=== PATIENT | female | born 1955 | race Caucasian/White ===

== ENCOUNTER → 2016-09-04 | Outpatient (CLI) | payer MEDICARE, OTHER ==
[2016-09-04 11:38] LABS: Non-African American GFR(MDRD) 58 (>60 ml/min/1.73 sqM)
--- NOTE | 2016-09-09 12:35 | MM ---
Reason for exam: screening (asymptomatic). Baseline mammogram. History: Patient is postmenopausal. Physical Findings: A clinical breast exam by your physician is recommended on an annual basis and results should be correlated with mammographic findings. MG 3D Screening Mammo W/Cad Bilateral CC and MLO view(s) were taken. There are scattered fibroglandular densities. There is a 5mm mass possibly fat containing in the right breast at the 12:30 o'clock location approximately 5cm from nipple. ASSESSMENT: Incomplete: need additional imaging evaluation, BI-RAD 0 RECOMMENDATION: Special view mammogram and ultrasound of the right breast. [facility] will attempt to contact patient to return for supplemental views and ultrasound.
== END ==
LOC: RADMAMWWP 10:42
PROVIDERS: ATTEND Family Medicine
DX: Z12.31 Encounter for screening mammogram for malignant neoplasm of breast (principal); R92.2 Inconclusive mammogram
CPT/HCPCS: 82565; 77063; G0202

== ENCOUNTER → 2016-09-04 | Outpatient (CLI) | payer MEDICARE, OTHER ==
--- NOTE | 2016-09-04 13:03 | MR ---
EXAMINATION TYPE: MR brain wo/w con DATE OF EXAM: 09/04/2016 12:38 PM COMPARISON: None. HISTORY: Dizziness TECHNIQUE: Multiplanar, multiecho imaging of the brain was obtained with and without intravenous adm inistration of 15 mL intravenous MultiHance. FINDINGS: Midline structures are unremarkable. There is a normal craniocervical junction. Echoplanar diffusion imaging fails to show any areas of restricted diffusion. There is mucoperiosteal thickening involving ethmoid sinuses. There is an air-fluid level in the righ t frontal sinus. There are normal vascular flow voids. The orbits are normal. There is no evidence of a CP angle mass lesion. There are approximately 16 I signal lesions on the FLAIR dataset in a periventricular and deep white matter location. Most of these are low-attenuation on the T1 data set. The largest is in the basal ga nglia on the left and measures 0.8 x 1.2 x 2.2 cm. The second largest is in the groves radiata on the right and measures 10.1 mm. Although these may represent areas of lacunar infarction. I cannot exclu de other forms of demyelination. There is no mass effect, midline shift or intracranial blood. Following intravenous administration of gadolinium, there is a 7 mm rounded focus of enhancement in t he right side of the bahman. This does not correspond to any of the aforementioned FLAIR lesions. No ot her areas of abnormal enhancement are seen. IMPRESSION: 1. 8MM FOCUS OF ENHANCEMENT IN THE RIGHT SIDE OF THE BAHMAN. THIS IS SUSPICIOUS FOR NEOPLASM. 2. MULTIPLE FOCAL AREAS OF ABNORMAL FLAIR SIGNAL MAY REPRESENT AREAS OF PREVIOUS LACUNAR INFARCTION. DEMYELINATING DISEASE IS NOT EXCLUDED.
== END | disposition home or self-care (01) ==
LOC: RADMRIMAIN 11:22
PROVIDERS: ATTEND Family Medicine
DX: R90.89 Other abnormal findings on diagnostic imaging of central nervous system (principal); R42 Dizziness and giddiness
CPT/HCPCS: 70553; A9577

== ENCOUNTER → 2016-09-24 | Outpatient (CLI) | payer MEDICARE, OTHER ==
--- NOTE | 2016-09-24 09:46 | MM ---
Reason for exam: additional evaluation requested from abnormal screening. Last mammogram was performed 1 month ago. History: Patient is postmenopausal. Physical Findings: Nurse did not find any significant physical abnormalities on exam. MG 3D Work Up W/Cad RT CC and MLO view(s) were taken of the right breast. Prior study comparison: September 04, 2016, bilateral MG 3d screening mammo w/cad. The breast tissue is heterogeneously dense. This may lower the sensitivity of mammography. 7mm nodular asymmetry, 12 o'clock becomes less defined on additional views. This may represent a cyst. These results were verbally communicated with the patient and result sheet given to the patient on 09/24/16. ASSESSMENT: Incomplete: need additional imaging evaluation, BI-RAD 0 RECOMMENDATION: Ultrasound of the right breast.
--- NOTE | 2016-09-24 09:47 | USB ---
Reason for exam: additional evaluation requested from abnormal screening. History: Patient is postmenopausal. US Breast Workup Limited RT Right breast ultrasound demonstrates a 6 x 3 x 5mm oval, cystic lesion at 12 o'clock, 2.8cm from nipple. This correlates well with the mammographic finding. These results were verbally communicated with the patient and result sheet given to the patient on 09/24/16. ASSESSMENT: Benign, BI-RAD 2 RECOMMENDATION: Return to routine screening mammogram schedule for both breasts.
== END | disposition home or self-care (01) ==
LOC: RADMAMWWP 08:32
PROVIDERS: ATTEND Family Medicine
DX: R92.8 Other abnormal and inconclusive findings on diagnostic imaging of breast (principal)
CPT/HCPCS: 76642; G0206; G0279

== ENCOUNTER → 2016-12-16 | Outpatient (CLI) | payer MEDICARE, OTHER ==
[2016-12-16 18:04] LABS: Non-African American GFR(MDRD) 51 (>60 ml/min/1.73 sqM)
--- NOTE | 2016-12-17 22:35 | MR ---
EXAMINATION TYPE: MR brain wo/w con DATE OF EXAM: 12/16/2016 COMPARISON: Prior MRI brain September 04, 2016. 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 TECHNIQUE: Multiplanar, multisequence images of the brain and brainstem is performed without and with IV contras t, utilizing 7.5 mL intravenous Gadavist . FINDINGS: Diffusion weighted images demonstrate no evidence of a recent infarct or other diffusion ab normality. There is persistent ventricular and sulcal prominence consistent with diffuse cerebral at rophy. And findings are most prominent over bilateral frontal lobes. There are scattered foci of T2 h yperintensity seen throughout the white matter bilaterally. No significant change in size or number o f lesions is identified. Reference lesion left basal ganglia extending into internal capsule and head of caudate nucleus is redemonstrated on FLAIR axial images 15 through 17 measuring 1.9 x 1.1 cm on a xial image 17 not significantly changed from prior in size and appearance. SWI imaging shows some cur vilinear blood product along the medial aspect. Midline structures demonstrate normal morphology. The craniocervical junction appears within normal limits. Post contrast images redemonstrates 6 x 6 x 6 mm enhancing focus right aspect of todd on axi al image 10 and sagittal image 86 not significantly changed from prior. This area is isointense on T2 and T1-weighted images, shows low signal on SWI though not as low as blood product or hemosiderin. N o new enhancing lesions are clearly seen. The dural venous sinuses appear patent. There is interval r esolution of air-fluid level right frontal sinus. There is persistent mild mucosal thickening anterio r ethmoid sinuses and inferior maxillary sinuses improved from prior. Patchy fluid signal bilateral m astoid air cells is also felt slightly improved from prior. Globes are intact bilaterally. IMPRESSION: 1. Stable 6 mm isointense but heterogeneously enhancing right pontine lesion uncertain etiology in wh ich intraparenchymal neoplasm cannot be excluded. 2. Moderate nonspecific white matter changes redemonstrated. No new or enhancing lesions are seen. No significant change from prior. 3. Stable background of mild diffuse cerebral atrophy with more prominent symmetric moderate frontal lobe atrophy redemonstrated. 4. Improving paranasal sinus disease as detailed above.
== END ==
LOC: RADMRIMAIN 17:12
PROVIDERS: ATTEND Neurological Surgery
DX: D43.2 Neoplasm of uncertain behavior of brain, unspecified (principal); D43.4 Neoplasm of uncertain behavior of spinal cord; R90.89 Other abnormal findings on diagnostic imaging of central nervous system; G31.9 Degenerative disease of nervous system, unspecified; Z01.812 Encounter for preprocedural laboratory examination
CPT/HCPCS: 82565; 70553; 36415; A9581

== ENCOUNTER → 2018-03-21 | Outpatient (CLI) | payer MEDICARE, OTHER ==
--- NOTE | 2018-03-21 13:12 | MR ---
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 TECHNIQUE: Multiplanar, multisequence images of the brain and brainstem is performed without and with IV contras t, utilizing 7.5 mL intravenous Gadavist . FINDINGS: Diffusion weighted images demonstrate no evidence of a recent infarct or other diffusion ab normality. There is ventricular and sulcal prominence consistent with mild diffuse cerebral atrophy i s prominent over bilateral frontal lobes redemonstrated. Scattered foci of T2 hyperintensity are rede monstrated throughout the white matter bilaterally, most prominent lesion is right paraventricular le ailyn measuring approximately 15 x 10 mm axial image 20 not significantly changed from prior. There is persistent old infarct left head of caudate nucleus extending into basal ganglia on axial images 17 t hrough 19. Midline structures demonstrate normal morphology. The craniocervical junction appears within normal limits. Post contrast images redemonstrate 5 x 5 x 6 mm enhancing focus lateral posterior aspect rig ht todd axial image 12 and sagittal image 84 not significant change in size or appearance from prior. Lesion noted isointense on T1 and T2-weighted images. No new enhancing lesions are present. The dura l venous sinuses appear patent. Mild mucosal thickening involving ethmoid sinuses bilaterally is rede monstrated. IMPRESSION: 1. Stable 6 mm isointense but heterogeneous enhancing lesion right aspect of todd uncertain in etiolo gy, vascular etiology needs to BE considered. 2. Mild to moderate nonspecific white matter changes redemonstrated. Suspect old left-sided infarct i nvolving left basal ganglia and head of caudate nucleus. Stable mild diffuse age-related cerebral atr ophy most prominent over bilateral frontal lobes.
== END | disposition home or self-care (01) ==
LOC: RADMRIMAIN 10:36
PROVIDERS: ATTEND Family Medicine
DX: D33.2 Benign neoplasm of brain, unspecified (principal); R90.89 Other abnormal findings on diagnostic imaging of central nervous system; G31.1 Senile degeneration of brain, not elsewhere classified
CPT/HCPCS: 82565; 70553; 36415; A9585

== ENCOUNTER 2018-03-24 11:14 | Inpatient (IN) | payer MEDICARE, OTHER ==
[2018-03-24] MEDS ORDERED: ASPIRIN 325 MG TAB PO STA (11:40)
[2018-03-24] MEDS ORDERED: LABETALOL SYRINGE 5 MG/ML IVP STA ×2 (12:14→13:21)
--- NOTE | 2018-03-24 12:18 | XR ---
EXAMINATION TYPE: XR chest 2V DATE OF EXAM: 03/24/2018 COMPARISON: 04/02/2013 HISTORY: Chest pain TECHNIQUE: Frontal and lateral views of the chest are obtained. FINDINGS: There is no focal air space opacity, pleural effusion, or pneumothorax seen. The cardiac silhouette size is within normal limits. The osseous structures are intact. Minimal degenerative ch anges of the thoracic spine are noted. IMPRESSION: No acute cardiopulmonary process.
[2018-03-24 12:22] LABS: Basophils % (A) 1 %; Eosinophils # (A) 0.2 k/uL (0-0.7); Eosinophils % (A) 4 %; HCT 38.8 % (34.0-46.0); HGB 12.9 gm/dL (11.4-16.0); Lymphocytes # (A) 1.4 k/uL (1.0-4.8); Lymphocytes % (A) 24 %; MCHC 33.3 g/dL (31.0-37.0); MCV 89.9 fL (80.0-100.0); Mean Platelet Volume 9.4; Monocytes # (A) 0.3 k/uL (0-1.0); Monocytes % (A) 4 %; Neutrophils # (A) 3.7 k/uL (1.3-7.7); Neutrophils % (A) 65 %; Platelet Count 165 k/uL (150-450); RBC 4.32 m/uL (3.80-5.40); RDW 14.5 % (11.5-15.5); WBC 5.6 k/uL (3.8-10.6)
[2018-03-24 12:32] LABS: Prothrombin Time 10.6 sec (9.0-12.0)
[2018-03-24 12:37] LABS: Albumin 4.4 g/dL (3.5-5.0); Calcium 9.9 mg/dL (8.4-10.2); Magnesium 1.4 mg/dL (1.6-2.3); Potassium 4.6 mmol/L (3.5-5.1); Total Bilirubin 0.7 mg/dL (0.2-1.3); Total Protein 7.3 g/dL (6.3-8.2)
[2018-03-24 12:47] LABS: Creatine Kinase 48 U/L (30-135)
[2018-03-24 13:01] LABS: Creatine Kinase MB 0.4 ng/mL (0.0-2.4); Troponin I <0.012 ng/mL (0.000-0.034)
[2018-03-24] MEDS ORDERED: LABETALOL 5 MG/ML VIAL MDV IVP STA (13:17)
[2018-03-24] MEDS ORDERED: HEPARIN SODIUM,PORCINE 5,000 UNIT/ML 1 ML VIAL IV PRN (13:29)
[2018-03-24] MEDS ORDERED: HEPARIN SODIUM,PORCINE 5,000 UNIT/ML 1 ML VIAL IV ONE (13:29)
[2018-03-24] MEDS ORDERED: HEPARIN SOD,PORK IN 0.45% NACL 25,000 UNIT in 0.45% NACL 1 250ML.BAG IV SCH (13:30)
--- NOTE | 2018-03-24 13:40 | ED ---
General Adult HPI - General Chief complaint: Recheck/Abnormal Lab/Rx Stated complaint: sent to er following stress test Time Seen by Provider: 03/24/18 11:31 Source: patient, RN notes reviewed Mode of arrival: ambulatory Limitations: no limitations - History of Present Illness Initial comments: 62-year-old female with a past medical history of CVA, diabetes, hypertension, hyperlipidemia presents to the emergency department for abnormal stress test. Patient states she was told to come over here but is unsure of why. Patient denies any chest pain or shortness of breath. Denies any dizziness or lightheadedness. No weakness. Patient denies any previous MIs. On review, Lexiscan stress test done this morning shows a fixed mild infarct in the mid segments of the anterior and septal left ventricular fontaine in the distribution of the left anterior descending coronary artery with moderate to severe infarct ischemia. Patient has no other complaints at this time including shortness of breath, chest pain, abdominal pain, nausea or vomiting, headache, or visual changes. - Related Data Home Medications Medication Instructions Recorded Confirmed Labetalol HCl [Trandate] 200 mg PO BID 09/02/14 03/24/18 Lisinopril 40 mg PO DAILY 09/02/14 03/24/18 Aspirin 81 mg PO DAILY 10/03/14 03/24/18 Insulin Glargine,Hum.rec.anlog 30 unit SQ BID 03/24/18 03/24/18 [Lantus Solostar] Previous Rx's Medication Instructions Recorded Omeprazole [PriLOSEC] 20 mg PO AC-BID #60 cap 09/03/14 Hydrochlorothiazide [Hydrodiuril] 25 mg PO DAILY #0 10/22/14 metFORMIN HCL [Glucophage] 1,000 mg PO BID-W/MEALS #60 tab 10/22/14 Allergies Allergy/AdvReac Type Severity Reaction Status Date / Time No Known Allergies Allergy Verified 03/24/18 11:35 Review of Systems ROS Statement: Those systems with pertinent positive or pertinent negative responses have been documented in the HPI. ROS Other: All systems not noted in ROS Statement are negative. Past Medical History Past Medical History: CVA/TIA, Diabetes Mellitus, GERD/Reflux, GI Bleed, Hyperlipidemia, Hypertension, Osteoarthritis (OA) Additional Past Medical History / Comment(s): TIA years ago History of Any Multi-Drug Resistant Organisms: None Reported Past Surgical History: Hysterectomy, Joint Replacement Additional Past Surgical History / Comment(s): Total Left knee 12/2013, partial colectomy, colonoscopy 2 weeks ago. Past Anesthesia/Blood Transfusion Reactions: No Reported Reaction Past Psychological History: No Psychological Hx Reported Smoking Status: Former smoker Past Alcohol Use History: None Reported Past Drug Use History: None Reported - Past Family History Father History Unknown: Yes Family Medical History: Coronary Artery Disease (CAD), Diabetes Mellitus ( Father at age of 69 from diabetes but is soft and he also has history of CAD.), Hyperlipidemia, Hypertension, Myocardial Infarction (CA) Sister(s) Family Medical History: Diabetes Mellitus (Patient has 3 sisters 2 of them with diabetes type 2) Mother Family Medical History: Coronary Artery Disease (CAD) (Mother at age 72 from CABG) Additional Family Medical History / Comment(s): HAD HEART SX PT NOT SURE WHAT WAS DONE AND THAT SHE HAD FLUID IN HER LUNGS. Brother(s) Family Medical History: Diabetes Mellitus (Patient had 4 brothers 2 of them with diabetes complications.) Daughter(s) Family Medical History: No Reported History (Patient has 2 daughters no major medical problems.) Son(s) Family Medical History: No Reported History (Patient has one son no major medical problems) General Exam Limitations: no limitations General appearance: alert, in no apparent distress Head exam: Present: atraumatic, normocephalic, normal inspection Eye exam: Present: normal appearance, PERRL, EOMI. Absent: scleral icterus, conjunctival injection, periorbital swelling ENT exam: Present: normal exam, mucous membranes moist Neck exam: Present: normal inspection, full ROM. Absent: tenderness, meningismus, lymphadenopathy Respiratory exam: Present: normal lung sounds bilaterally. Absent: respiratory distress, wheezes, rales, rhonchi, stridor Cardiovascular Exam: Present: regular rate, normal rhythm, normal heart sounds. Absent: systolic murmur, diastolic murmur, rubs, gallop, clicks Neurological exam: Present: alert, oriented X3, CN II-XII intact Psychiatric exam: Present: normal affect, normal mood Course Vital Signs 03/24/18 03/24/18 03/24/18 11:20 12:25 13:05 Temperature 97.8 F Pulse Rate 96 73 75 Respiratory 18 16 18 Rate Blood Pressure 195/116 199/104 188/99 O2 Sat by Pulse 97 96 100 Oximetry 03/24/18 03/24/18 03/24/18 13:27 14:04 14:52 Temperature Pulse Rate 69 64 73 Respiratory 18 18 18 Rate Blood Pressure 190/98 187/91 172/77 O2 Sat by Pulse 96 98 95 Oximetry Medical Decision Making - Medical Decision Making Lexiscan stress test done this morning shows a fixed mild infarct in the mid segments of the anterior and septal left ventricular fontaine in the distribution of the left anterior descending coronary artery with moderate to severe. In fact ischemia. Abnormal left ventricular ejection fraction of 30%. Patient denies previous history of CA.62-year-old female presents for abnormal stress test. Patient denies any symptoms whatsoever. EKG does show some depression in lead I and AV L which is new compared to her latest EKG from 2014. Patient given aspirin. CBC unremarkable. CMP shows mild transaminitis. Magnesium of 1.4. Patient replaced with 2 g of magnesium. Troponin is negative. Chest x- ray shows no acute process. Given that patient's stress test did show infarct without history of known CA patient was started on heparin as troponin may not yet be elevated. Patient will be admitted for cardiology consult and further management. - Lab Data Result diagrams: 03/24/18 12:00 03/24/18 12:00 Lab Results 03/24/18 03/24/18 03/24/18 Range/Units 12:00 12:00 12:00 WBC 5.6 (3.8-10.6) k/uL RBC 4.32 (3.80-5.40) m/uL Hgb 12.9 (11.4-16.0) gm/dL Hct 38.8 (34.0-46.0) % MCV 89.9 (80.0-100.0) fL MCH 30.0 (25.0-35.0) pg MCHC 33.3 (31.0-37.0) g/dL RDW 14.5 (11.5-15.5) % Plt Count 165 (150-450) k/uL Neutrophils % 65 % Lymphocytes % 24 % Monocytes % 4 % Eosinophils % 4 % Basophils % 1 % Neutrophils # 3.7 (1.3-7.7) k/uL Lymphocytes # 1.4 (1.0-4.8) k/uL Monocytes # 0.3 (0-1.0) k/uL Eosinophils # 0.2 (0-0.7) k/uL Basophils # 0.0 (0-0.2) k/uL PT (9.0-12.0) sec INR (<1.2) APTT (22.0-30.0) sec Sodium 140 (137-145) mmol/L Potassium 4.6 (3.5-5.1) mmol/L Chloride 105 (98-107) mmol/L Carbon Dioxide 24 (22-30) mmol/L Anion Gap 11 mmol/L BUN 23 H (7-17) mg/dL Creatinine 0.90 (0.52-1.04) mg/dL Est GFR (CKD-EPI)AfAm 80 (>60 ml/min/1.73 sqM) Est GFR (CKD-EPI)NonAf 69 (>60 ml/min/1.73 sqM) Glucose 154 H (74-99) mg/dL Calcium 9.9 (8.4-10.2) mg/dL Magnesium 1.4 L (1.6-2.3) mg/dL Total Bilirubin 0.7 (0.2-1.3) mg/dL AST 71 H (14-36) U/L ALT 90 H (9-52) U/L Alkaline Phosphatase 61 (38-126) U/L Total Creatine Kinase 48 (30-135) U/L CK-MB (CK-2) 0.4 (0.0-2.4) ng/mL CK-MB (CK-2) Rel Index 0.8 Troponin I <0.012 (0.000-0.034) ng/mL Total Protein 7.3 (6.3-8.2) g/dL Albumin 4.4 (3.5-5.0) g/dL 03/24/18 Range/Units 12:00 WBC (3.8-10.6) k/uL RBC (3.80-5.40) m/uL Hgb (11.4-16.0) gm/dL Hct (34.0-46.0) % MCV (80.0-100.0) fL MCH (25.0-35.0) pg MCHC (31.0-37.0) g/dL RDW (11.5-15.5) % Plt Count (150-450) k/uL Neutrophils % % Lymphocytes % % Monocytes % % Eosinophils % % Basophils % % Neutrophils # (1.3-7.7) k/uL Lymphocytes # (1.0-4.8) k/uL Monocytes # (0-1.0) k/uL Eosinophils # (0-0.7) k/uL Basophils # (0-0.2) k/uL PT 10.6 (9.0-12.0) sec INR 1.0 (<1.2) APTT 25.0 (22.0-30.0) sec Sodium (137-145) mmol/L Potassium (3.5-5.1) mmol/L Chloride (98-107) mmol/L Carbon Dioxide (22-30) mmol/L Anion Gap mmol/L BUN (7-17) mg/dL Creatinine (0.52-1.04) mg/dL Est GFR (CKD-EPI)AfAm (>60 ml/min/1.73 sqM) Est GFR (CKD-EPI)NonAf (>60 ml/min/1.73 sqM) Glucose (74-99) mg/dL Calcium (8.4-10.2) mg/dL Magnesium (1.6-2.3) mg/dL Total Bilirubin (0.2-1.3) mg/dL AST (14-36) U/L ALT (9-52) U/L Alkaline Phosphatase (38-126) U/L Total Creatine Kinase (30-135) U/L CK-MB (CK-2) (0.0-2.4) ng/mL CK-MB (CK-2) Rel Index Troponin I (0.000-0.034) ng/mL Total Protein (6.3-8.2) g/dL Albumin (3.5-5.0) g/dL Disposition Clinical Impression: Abnormal stress test, Hypomagnesemia Disposition: ADMITTED IP TO THIS [facility] Condition: Fair Referrals: Doroteo Varela DO [Primary Care Provider] - 1-2 days Time of Disposition: 15:28
[2018-03-24] MEDS ORDERED: hydrALAZINE HCL 20 MG/ML 1 ML VIAL IVP STA (14:25)
[2018-03-24] MEDS: MAGNESIUM SULFATE-D5W PMX 1 GM in DEXTROSE/WATER 1 100ML.BAG IVPB SCH ×2 (14:47→16:21)
[2018-03-24] MEDS ORDERED: NITROGLYCERIN SL TABS 0.4 MG TAB SUBLINGUAL PRN (15:28)
[2018-03-24 20:03] LABS: Glucose,Whole Blood 193 mg/dL (75-99)
[2018-03-24] MEDS: INSULIN ASPART (NovoLOG) 100 UNIT/ML VIAL SQ SCH (20:07)
[2018-03-24 20:25] LABS: Creatine Kinase 42 U/L (30-135)
[2018-03-24] MEDS ORDERED: hydrALAZINE HCL 20 MG/ML 1 ML VIAL IVP PRN (20:34)
[2018-03-24] MEDS ORDERED: amLODIPine 10 MG TAB PO STA (20:34)
[2018-03-24 20:38] LABS: Creatine Kinase MB 0.5 ng/mL (0.0-2.4); Troponin I <0.012 ng/mL (0.000-0.034)
[2018-03-24] MEDS ORDERED: INSULIN DETEMIR (LEVEMIR) 100 UNIT/ML SYR SQ ONE (21:00)
[2018-03-25 00:50] LABS: Creatine Kinase 41 U/L (30-135)
[2018-03-25 01:03] LABS: Creatine Kinase MB 0.4 ng/mL (0.0-2.4); Troponin I <0.012 ng/mL (0.000-0.034)
[2018-03-25 05:46] LABS: Glucose,Whole Blood 201 mg/dL (75-99)
[2018-03-25] MEDS: INSULIN ASPART (NovoLOG) 100 UNIT/ML VIAL SQ SCH ×4 (06:19→20:22)
[2018-03-25 06:55] LABS: Basophils # (A) 0.1 k/uL (0-0.2); Basophils % (A) 1 %; Eosinophils # (A) 0.2 k/uL (0-0.7); Eosinophils % (A) 4 %; HCT 39.6 % (34.0-46.0); Lymphocytes # (A) 1.4 k/uL (1.0-4.8); Lymphocytes % (A) 28 %; MCH 29.4 pg (25.0-35.0); MCHC 32.9 g/dL (31.0-37.0); MCV 89.4 fL (80.0-100.0); Mean Platelet Volume 8.6; Monocytes # (A) 0.2 k/uL (0-1.0); Monocytes % (A) 5 %; Neutrophils # (A) 3.2 k/uL (1.3-7.7); Neutrophils % (A) 61 %; Platelet Count 195 k/uL (150-450); RBC 4.43 m/uL (3.80-5.40); RDW 14.6 % (11.5-15.5); WBC 5.2 k/uL (3.8-10.6)
[2018-03-25 07:05] LABS: Calcium 9.9 mg/dL (8.4-10.2); Magnesium 1.6 mg/dL (1.6-2.3)
[2018-03-25] MEDS ORDERED: ASPIRIN 325 MG TAB PO STA (08:32)
[2018-03-25] MEDS ORDERED: SODIUM CHLORIDE 0.9% 1,000 ML in EMPTY BAG 1 BAG IV ONE (08:32)
[2018-03-25] MEDS ORDERED: ATORVASTATIN 80 MG TAB PO STA (08:32)
[2018-03-25] MEDS ORDERED: ALPRAZolam 0.5 MG TAB PO PRN (08:32)
[2018-03-25] MEDS ORDERED: NITROGLYCERIN SL TABS 0.4 MG TAB SUBLINGUAL PRN ×2 (08:32→13:14)
[2018-03-25] MEDS ORDERED: ALPRAZolam 0.25 MG TAB PO PRN (08:32)
[2018-03-25] MEDS ORDERED: ASPIRIN 325 MG TAB PO SCH (09:00)
[2018-03-25] MEDS: LISINOPRIL 20 MG TAB PO SCH (09:55)
[2018-03-25] MEDS: HYDROCHLOROTHIAZIDE 25 MG TAB PO SCH (09:56)
[2018-03-25] MEDS: ATORVASTATIN 80 MG TAB PO SCH (09:57)
[2018-03-25] MEDS: hydrALAZINE HCL 25 MG TAB PO SCH ×2 (09:59→20:22)
[2018-03-25] MEDS: LABETALOL 200 MG TAB PO SCH ×2 (09:59→20:22)
[2018-03-25 11:20] LABS: Glucose,Whole Blood 161 mg/dL (75-99)
[2018-03-25] MEDS ORDERED: fentaNYL (PF) 50 MCG/ML 2 ML AMP ONE (11:20)
[2018-03-25] MEDS ORDERED: LIDOCAINE 1% INJ 10MG/ML (20 ML MDV) ONE (11:20)
[2018-03-25] MEDS ORDERED: VERAPAMIL 2.5 MG/ML 2 ML AMP ONE (11:24)
[2018-03-25] MEDS ORDERED: IV FLUID CONTINUATION 1,000 ML IV ONE (11:34)
[2018-03-25] MEDS ORDERED: BIVALIRUDIN 250 MG in SODIUM CHLORIDE 0.9% 50 ML IV ONE (11:45)
--- NOTE | 2018-03-25 11:48 | CONS ---
CONSULTATION Mrs. Briones is a 62-year-old female who was admitted through the emergency room. She is followed by and has a history of hypertension, hyperlipidemia, premature coronary artery disease. Yesterday, underwent a stress test and an echocardiogram as an outpatient and was called back to be admitted electively. Patient has no prior documented history of coronary artery disease. Her activity is limited by her knee discomfort, but she has no dyspnea. No chest pain. No dizziness or palpitation. No PND, orthopnea, or peripheral edema. Her echocardiogram revealed an ejection fraction of 35% to 40% and her stress test was reported showing evidence of anterior and septal wall defect with tony-infarct ischemia and an ejection fraction of 30%. Patient has no prior knowledge of a myocardial infarction. Her coronary risk factors are remarkable for hypertension, diabetes, and family history of premature coronary artery disease. She is a nonsmoker. MEDICATIONS: Include metformin 1 g twice a day, Prilosec, lisinopril 40 mg daily, labetalol 200 mg twice a day, insulin, hydrochlorothiazide 25 mg daily and aspirin once a day. REVIEW OF SYSTEMS: RESPIRATORY SYSTEM: No documented history of asthma, emphysema or bronchitis. GI SYSTEM: No recent GI bleeding. No peptic ulcer disease. SYSTEM: No dysuria or hematuria. NERVOUS SYSTEM: There is a questionable history of stroke 10 years ago, although not well documented. PHYSICAL EXAMINATION: A 62-year-old female, alert, oriented, in no apparent distress. Blood pressure running in the 160 and 150 with a heart rate in 70s. HEAD: Normocephalic. EYES: Sclerae nonicteric. NECK: Good upstroke, no bruit, no juglar venous distention. LUNGS: Clear to auscultation. HEART: Regular rate and rhythm, S1, S2. No S3. No rub or gallop appreciated. ABDOMEN: Soft, nontender. Positive bowel sounds. No organomegaly. Obese. EXTREMITIES: No edema, intact pulses. LAB DATA: Revealed BUN and creatinine 17 and 0.82, potassium 4.0. Troponin less than 0.012. Cholesterol 214, LDL of 141. The EKG revealed a sinus mechanism, normal axis and intervals with left ventricular hypertrophy and minor nonspecific ST-T wave changes. IMPRESSION: 1. Abnormal myocardial perfusion imaging with evidence of ischemic cardiomyopathy and inducible ischemia. 2. History of hypertension. 3. Diabetes mellitus. 4. Hyperlipidemia. RECOMMENDATION: I will add to her regimen statin. I have recommend proceeding with coronary angiography to assess her status and guide her treatment. The rationale behind the procedure as well as risks and complication were discussed with the patient who is in full understanding and agreement. Depending on the results of testing, further recommendation will be made. Thank you for this consult. Will follow with you. ANGELA / DAYSI: [id number] /
[2018-03-25] MEDS ORDERED: fentaNYL (PF) 50 MCG/ML 2 ML AMP IV ONE (12:20)
[2018-03-25] MEDS ORDERED: LIDOCAINE 1% (PF) 10 MG/ML (30 ML SDV) SQ ONE (12:22)
[2018-03-25] MEDS: VERAPAMIL SYRINGE (5 MG/10 ML) INTRAARTER ONE ×2 (12:23→12:32)
[2018-03-25] MEDS ORDERED: MIDAZOLAM 2 MG/2 ML VIAL IV ONE (12:23)
[2018-03-25] MEDS ORDERED: ONDANSETRON 4 MG/2 ML VIAL ONE (12:30)
[2018-03-25] MEDS ORDERED: ONDANSETRON 4 MG/2 ML VIAL IVP ONE (12:32)
[2018-03-25] MEDS ORDERED: PRASUGREL 10 MG TAB ONE (12:41)
[2018-03-25] MEDS ORDERED: BIVALIRUDIN BOLUS 250 MG/50 ML IV ONE (12:42)
[2018-03-25] MEDS ORDERED: PRASUGREL 10 MG TAB PO ONE (12:48)
[2018-03-25 12:49] LABS: Hemoglobin A1C 7.4 % (4.0-6.0)
[2018-03-25] MEDS ORDERED: IOPAMIDOL-370 125ML BTL INJ ONE (12:55)
[2018-03-25] MEDS ORDERED: IOPAMIDOL-370 100ML BTL INJ ONE (13:06)
[2018-03-25] MEDS ORDERED: RX INFO: IV CONTRAST WAS GIVEN 1 EACH MISC MISCELLANE PRN (13:14)
[2018-03-25] MEDS ORDERED: ATROPINE SULFATE 0.1 MG/ML 10ML SYRINGE IV PRN (13:14)
[2018-03-25] MEDS ORDERED: MAG HYDROX/AL HYDROX/SIMETH 30 ML CUP PO PRN (13:14)
[2018-03-25] MEDS ORDERED: ZOLPIDEM 5 MG TAB PO PRN (13:14)
[2018-03-25] MEDS ORDERED: SODIUM CHLORIDE 0.9% 1,000 ML IV SCH (13:15)
--- NOTE | 2018-03-25 14:01 | P.HPIM ---
History of Present Illness H&P Date: 03/25/18 This is a 62-year-old female one of Dr. Varela with a previous medical history significant for hypertension and hypertensive cardiovascular disease, diabetes mellitus type 2, mild TIA. Patient states that she had a stress test done 20 years ago and her doctor that she needed to have a repeat. She denies having any chest pain, shortness of breath, dyspnea with ambulation. She states her hip hurts when she walks. She underwent a stress test yesterday that was abnormal and showed a fixed mild infarct in the mid segments of the anterior and septal left ventricle fontaine in the distribution of the LAD with moderate to severe. Infarct ischemia. Abnormal left ventricle 8 EF was 30 %. Patient states that she was driving home and was called to come back in and was still slightly limited to these cardiac stepdown unit. Echocardiogram reveals EF of 35-40% with mild mitral regurgitation, trace tricuspid regurgitation, no pulmonary hypertension. She recently underwent an outpatient MRI due to left-sided weakness and hearing loss that found a stable 6 mm isointense but heterogeneous enhancing lesion right aspect of the todd uncertain etiology. Vascular etiology needs to be considered. Mild to moderate white matter changes redemonstrated. Suspect old left-sided infarct involving the left basal ganglia and head of the caudate nucleus. Stable mild diffuse age-related cerebral atrophy most prominent over the bilateral frontal lobes. Patient is scheduled for heart catheterization today with Dr. Cruz. Review of Systems All systems: negative Constitutional: Denies anorexia, Denies chills, Denies fatigue, Denies fever, Denies lethargy, Denies malaise, Denies poor appetite, Denies weakness Eyes: denies blurred vision, denies pain Ears, nose, mouth and throat: Denies dysphagia, Denies headache, Denies sore throat, Denies vertigo Cardiovascular: Denies chest pain, Denies decreased exercise tolerance, Denies dyspnea on exertion, Denies edema, Denies leg edema, Denies lightheadedness, Denies shortness of breath, Denies syncope Respiratory: Denies cough, Denies cough with sputum, Denies dyspnea, Denies excessive sputum, Denies hemoptysis, Denies home oxygen, Denies wheezing Gastrointestinal: Denies abdominal pain, Denies diarrhea, Denies loss of appetite, Denies melena, Denies nausea, Denies vomiting Genitourinary: Denies dysuria, Denies hematuria, Denies urgency, Denies urinary frequency Musculoskeletal: Denies frequent falls, Denies gait dysfunction, Denies muscle weakness, Denies myalgias Integumentary: Denies pruritus, Denies rash, Denies wounds Neurological: Denies aphasia, Denies change in mentation, Denies change in speech, Denies confusion, Denies gait dysfunction, Denies head injury, Denies headaches, Denies numbness, Denies seizures, Denies weakness Psychiatric: Denies anxiety, Denies depression Endocrine: Denies fatigue, Denies weight change Past Medical History Past Medical History: CVA/TIA, Diabetes Mellitus, GERD/Reflux, GI Bleed, Hyperlipidemia, Hypertension, Osteoarthritis (OA) Additional Past Medical History / Comment(s): TIA years ago History of Any Multi-Drug Resistant Organisms: None Reported Past Surgical History: Hysterectomy, Joint Replacement Additional Past Surgical History / Comment(s): Total Left knee 12/2013, partial colectomy, colonoscopy 2 weeks ago. Past Anesthesia/Blood Transfusion Reactions: No Reported Reaction Past Psychological History: No Psychological Hx Reported Smoking Status: Former smoker Past Alcohol Use History: None Reported Additional Past Alcohol Use History / Comment(s): Patient quit smoking 10 years ago. She denies any marijuana or illicit drug use, no alcohol use. Patient does not have oxygen, nebulizer, CPAP at home. Past Drug Use History: None Reported - Past Family History Father History Unknown: Yes Family Medical History: Coronary Artery Disease (CAD), Diabetes Mellitus, Hyperlipidemia, Hypertension, Myocardial Infarction ([place]) Additional Family Medical History / Comment(s): Father at age of 69 from [place] with history of diabetes. Sister(s) Family Medical History: Diabetes Mellitus Additional Family Medical History / Comment(s): Patient has 3 sisters 2 of them with diabetes type 2. One sister at age 47 from myocardial infarction. Mother Family Medical History: Coronary Artery Disease (CAD) Additional Family Medical History / Comment(s): Mother at age 72 from CABG complications. Brother(s) Family Medical History: Diabetes Mellitus Additional Family Medical History / Comment(s): Patient had 4 brothers. One brother at age 45 from myocardial infarction. Daughter(s) Family Medical History: No Reported History Additional Family Medical History / Comment(s): Patient has 2 daughters no major medical problems. Son(s) Family Medical History: No Reported History Additional Family Medical History / Comment(s): Patient has one son with no major medical problems. Medications and Allergies Home Medications Medication Instructions Recorded Confirmed Type Labetalol HCl [Trandate] 200 mg PO BID 09/02/14 03/24/18 History Lisinopril 40 mg PO DAILY 09/02/14 03/24/18 History Omeprazole [PriLOSEC] 20 mg PO AC-BID #60 cap 09/03/14 03/24/18 Rx Aspirin 81 mg PO DAILY 10/03/14 03/24/18 History Hydrochlorothiazide [Hydrodiuril] 25 mg PO DAILY #0 10/22/14 03/24/18 Rx metFORMIN HCL [Glucophage] 1,000 mg PO BID-W/MEALS #60 tab 10/22/14 03/24/18 Rx Insulin Glargine,Hum.rec.anlog 30 unit SQ BID 03/24/18 03/24/18 History [Lantus Solostar] Allergies Allergy/AdvReac Type Severity Reaction Status Date / Time No Known Allergies Allergy Verified 03/24/18 11:35 Physical Exam Vitals: Vital Signs Temp Pulse Pulse Resp BP BP Pulse Ox 03/25/18 03:21 97.5 F L 78 18 150/70 94 L 03/24/18 23:38 98.1 F 69 18 145/65 95 03/24/18 23:00 186/79 03/24/18 20:30 169/89 03/24/18 20:05 179/90 03/24/18 19:45 97.6 F 76 18 201/92 95 03/24/18 19:01 87 18 179/91 96 03/24/18 16:22 72 16 164/87 96 03/24/18 14:52 73 18 172/77 95 03/24/18 14:04 64 18 187/91 98 03/24/18 13:27 69 18 190/98 96 03/24/18 13:05 75 18 188/99 100 03/24/18 12:25 73 16 199/104 96 03/24/18 11:20 97.8 F 96 18 195/116 97 Intake and Output 03/24/18 03/25/18 03/25/18 22:59 06:59 14:59 Intake Total 248.801 240 Balance 248.801 240 Intake: IV 190 240 0.9 160 160 Heparin Sod,Pork in 0.45% 30 80 NaCl 25,000 unit In 0.45 % NaCl 1 250ml.bag @ 12 UNITS/KG/HR 9.14 mls/hr IV .Q24H [facility] Rx#: [id number] Intake, IV Titration 58.801 Amount Heparin Sod,Pork in 0.45% 58.801 NaCl 25,000 unit In 0.45 % NaCl 1 250ml.bag @ 12 UNITS/KG/HR 9.14 mls/hr IV .Q24H [facility] Rx#: [id number] Other: Weight 74.6 kg General appearance: average body habitus, no acute distress - EENT Eyes: Reports EOMI, Reports PERRLA, Reports normal apperance, Denies ptosis, Denies scleral icterus ENT: Reports NA/AT, Reports normal oropharynx, Denies pharyngeal erythema, Denies thrush Ears: bilateral: normal - Neck Neck: Reports normal ROM, Denies lymphadenopathy, Denies stridor, Denies thyromegaly Carotids: bilateral: upstroke normal, negative: upstroke delayed, upstroke diminished, upstroke bounding, bruit absent Thyroid: bilateral: normal size - Respiratory Respiratory: bilateral: CTA, negative: diminished, dullness, rales, rhonchi, wheezing, prolonged expiration - Cardiovascular Rhythm: regular Heart sounds: normal: S1, S2 Abnormal Heart Sounds: Denies systolic murmur, Denies diastolic murmur, Denies rub, Denies S3 Gallop, Denies S4 Gallop, Denies click - Gastrointestinal General gastrointestinal: Reports normal bowel sounds, Reports soft, Denies organomegaly, Denies splenomegaly, Denies tenderness, Denies umbilical hernia, Denies ventral hernia - Integumentary Integumentary: Reports normal, Denies rash, Denies ulcer - Musculoskeletal Musculoskeletal: Reports gait normal, Reports strength equal bilaterally - Psychiatric Psychiatric: Reports A&O x's 3, Reports appropriate affect, Reports intact judgment & insight Results CBC & Chem 7: 03/25/18 05:51 03/25/18 05:51 Labs: Abnormal Lab Results - Last 24 Hours (Table) 03/24/18 03/24/18 03/24/18 Range/Units 12:00 19:13 20:02 APTT 53.2 H (22.0-30.0) sec BUN 23 H (7-17) mg/dL Glucose 154 H (74-99) mg/dL POC Glucose (mg/dL) 193 H (75-99) mg/dL Magnesium 1.4 L (1.6-2.3) mg/dL AST 71 H (14-36) U/L ALT 90 H (9-52) U/L Triglycerides (<150) mg/dL Cholesterol (<200) mg/dL LDL Cholesterol, Calc (0-99) mg/dL HDL Cholesterol (40-60) mg/dL 03/25/18 03/25/18 03/25/18 Range/Units 05:45 05:51 05:51 APTT 36.5 H (22.0-30.0) sec BUN (7-17) mg/dL Glucose 160 H (74-99) mg/dL POC Glucose (mg/dL) 201 H (75-99) mg/dL Magnesium (1.6-2.3) mg/dL AST (14-36) U/L ALT (9-52) U/L Triglycerides 193 H (<150) mg/dL Cholesterol 214 H (<200) mg/dL LDL Cholesterol, Calc 141 H (0-99) mg/dL HDL Cholesterol 34 L (40-60) mg/dL Thrombosis Risk Factor Assmnt - DVT/VTE Prophylaxis DVT/VTE Prophylaxis: Pharmacologic Prophylaxis ordered - Choose All That Apply Any of the Below Risk Factors Present?: Yes Each Factor Represents 1 point: Obesity (BMI >25) Each Risk Factor Represents 2 Points: Age 61-74 years Thrombosis Risk Factor Assessment Total Risk Factor Score: 3 Thrombosis Risk Factor Assessment Level: Moderate Risk Assessment and Plan Plan: 1. Abnormal stress test showing ischemia and ischemic cardiomyopathy. Patient admitted to the cardiac stepdown unit, cardiology consult appreciated. Patient scheduled for heart catheterization today. Continue aspirin 81 mg daily, Lipitor 80 mg daily. 2. Diabetes mellitus type 2 uncontrolled with hyperglycemia, hemoglobin A1c 7.4. Metformin currently on hold for heart catheterization. Patient was given half dose of Lantus this morning and night will continue her home dose of 30 units twice daily 3. Hypertension and hypertensive cardiovascular disease. Continue lisinopril 40 mg orally once every day, labetalol 200 mg orally twice every day, hydralazine 25 mg twice daily, hydrochlorothiazide 25 mg daily. 4. Gastroesophageal reflux disease and GI prophylaxis. Continue Prilosec 20 mg twice daily. 5. Osteoarthritis currently Naprosyn 500 mg orally twice every day. 6. History of nonspecific colitis, stable. CODE STATUS: Full code Patient will be admitted to the hospital for a minimum of 2 night stay Discharge plan: Return home on Wednesday Impression and plan of care have been directed as dictated by the signing physician. Elisa Hough nurse practitioner acting as scribe for signing physician.
--- NOTE | 2018-03-25 14:09 | CC ---
CARDIAC CATHETERIZATION REPORT HISTORY: Mrs. Briones is a 62-year-old female with known history of hypertension and diabetes mellitus who presented after undergoing an outpatient myocardial perfusion imaging that revealed evidence of stress-induced ischemia involving the anterior wall with impairment of left ventricular systolic function. In view of that, recommendation made regarding cardiac catheterization. The procedures, risks and complications were discussed with the patient who is in full understanding and agreement. PROCEDURE: Patient was brought to rn cardiac cath in a fasting semi-sedated state after receiving fentanyl and Benadryl and achieving moderate conscious sedated state. Using Xylocaine anesthesia and Seldinger technique, a 6-Swiss sheath was introduced in the right radial artery. Selective right and left coronary angiography was performed using 5- Swiss 3 and half bend right and left Gary catheter. Multiple views of the coronary artery including hemiaxial views were obtained. Following that, angioplasty and stenting of the LAD was performed. Following that a 5-Swiss tight pigtail catheter was introduced in the left ventricle and left ventriculogram was performed. Following that, catheter and sheath were removed. Hemostasis was obtained with deployment of a TR band. There was no immediate complication. Patient was returned to his room in stable condition. Of note, the patient received intra-arterial verapamil. FINDINGS: FLUOROSCOPY: There was calcification involving the left anterior descending artery. CORONARY ANGIOGRAPHY: LEFT ANTERIOR DESCENDING CORONARY ARTERY: This is a large-sized vessel reaching toward the apex with a wraparound apex segment diffusely diseased throughout its course, proximally has an area of stenosis up to 80%. The rest of the vessel has diffuse intimal disease with area stenosis up to 40%. The rest of the vessel has no high-grade stenosis. The vessel gives rise to 2 diagonal branch that diffusely disease as well. LEFT CIRCUMFLEX: This is a dominant vessel, large in caliber, bifurcating distally into PDA and posterolateral segment and branches. The left circumflex in the proximal segment has an eccentric 50% plaque. It gives rise to an obtuse marginal branch that has a 40% to 50% plaque distally. The PLV and PDA have intimal disease without any evidence of high-grade stenosis. RIGHT CORONARY ARTERY: This is a small nondominant vessel, subtotally occluded with antegrade flow. LEFT VENTRICULOGRAM: Left ventriculogram was performed in 30 degree SINGH view and revealed anteroapical hypokinesis of mild degree. The ejection fraction is estimated at 45% to 50%. CONCLUSION: 1. Calcified left anterior descending artery. 2. Significant stenosis involving the proximal LAD in a long segment. 3. Moderate disease in the left circumflex with subtotal occluded small nondominant right coronary artery. 4. Mildly impaired left ventricular systolic function. RECOMMENDATION: In view of findings and anatomy, I have recommend proceeding with angioplasty and stenting of the LAD. The procedures as well as risks and complication were discussed with the patient who is in full understanding and agreement. MMODL / IJN: [id number] /
--- NOTE | 2018-03-25 14:45 | PTCA ---
PERCUTANEOUSTRANS CORORONARY ANGIOGRAPHY Mrs. Briones is a 62-year-old female with known history of hypertension, hyperlipidemia, who underwent an outpatient myocardial perfusion imaging that revealed inducible ischemia involving the anteroapical wall with impairment of left ventricular systolic function. She underwent cardiac catheterization, was found to have critical stenosis involving a long segment of the proximal LAD. In view of that, recommendation regarding angioplasty and stenting. The procedure as well as risks and complications were discussed with the patient who is in full understanding and agreement. DESCRIPTION OF THE PROCEDURE: A 6-Bolivian FR 3.5 guiding catheter was introduced into the system. After cannulating the left main, a 0.014 balanced medium weight J-wire was advanced across the lesion, positioned distally. Then a 2.25 x 8 mm Trek balloon was advanced and 2 inflations at 10 atmospheres were done. Following that, the balloon was removed and a 2.25 x 28 mm Xience Keturah stent was deployed, postdilated at 16 atmospheres. After the last inflation, after appropriate wait, the balloon and the guidewire were withdrawn back in the guiding catheter. Images were obtained, repeated. Those images reveal stable successful stenting. At that point, the guiding catheter, the balloon and the guidewire were removed. Left ventriculogram was performed. Following that, the sheath was removed. Hemostasis was obtained with deployment of a TR band. There was no immediate complication. Patient was returned to her room in stable condition. Of note, the patient received Angiomax per protocol as well as oral loading dose of Effient. She had EKG changes with the inflation without significant chest pain. RESULTS: Successful stenting in a long segment of the proximal LAD with reduction of stenosis from 80% to 0%. RECOMMENDATIONS: Patient will be continued on aspirin, Effient, beta david, JOHN inhibitor and statin. The importance of dual antiplatelet treatment were discussed with the patient and her family, who are in full understanding and agreement. Duration of procedure: 48 minutes. MMODL / IJN: [id number] /
--- NOTE | 2018-03-25 14:51 | LTR ---
DATE OF SERVICE: 03/25/[address] Varela: I had the pleasure of performing cardiac catheterization and coronary angioplasty and stenting on Mrs. Briones at [facility] on March 25 and a full copy of procedure note will be forwarded to you. In brief, she was found to have critical stenosis involving a long segment of the proximal LAD. Underwent successful stenting of that vessel using a drug-eluting stent. I am hopeful that this procedure was stabilize her status. Thank you again for allowing me to participate in her care. Please feel free to call for any questions. Sincerely, ANGELA / IJN: [id number] /
[2018-03-25 17:08] LABS: Glucose,Whole Blood 153 mg/dL (75-99)
[2018-03-25 20:14] LABS: Glucose,Whole Blood 182 mg/dL (75-99)
[2018-03-25] MEDS: INSULIN DETEMIR (LEVEMIR) 100 UNIT/ML SYR SQ SCH (20:22)
[2018-03-26 05:33] VITALS: RESP 18
[2018-03-26 05:58] LABS: Glucose,Whole Blood 158 mg/dL (75-99)
[2018-03-26 06:24] LABS: Basophils % (A) 1 %; Eosinophils # (A) 0.2 k/uL (0-0.7); Eosinophils % (A) 4 %; HCT 36.7 % (34.0-46.0); HGB 12.3 gm/dL (11.4-16.0); Lymphocytes # (A) 1.3 k/uL (1.0-4.8); Lymphocytes % (A) 23 %; MCH 30.1 pg (25.0-35.0); MCHC 33.4 g/dL (31.0-37.0); MCV 90.1 fL (80.0-100.0); Mean Platelet Volume 8.6; Monocytes # (A) 0.4 k/uL (0-1.0); Monocytes % (A) 7 %; Neutrophils # (A) 3.5 k/uL (1.3-7.7); Neutrophils % (A) 64 %; Platelet Count 184 k/uL (150-450); RBC 4.07 m/uL (3.80-5.40); RDW 14.6 % (11.5-15.5); WBC 5.5 k/uL (3.8-10.6)
[2018-03-26] MEDS: INSULIN ASPART (NovoLOG) 100 UNIT/ML VIAL SQ SCH ×2 (06:33→11:51)
[2018-03-26 06:45] LABS: Potassium 4.5 mmol/L (3.5-5.1)
[2018-03-26] MEDS ORDERED: PANTOPRAZOLE 40 MG TABLET PO SCH (07:30)
[2018-03-26] MEDS ORDERED: ASPIRIN 81 MG PO SCH (09:00)
[2018-03-26] MEDS: HYDROCHLOROTHIAZIDE 25 MG TAB PO SCH (09:08)
[2018-03-26] MEDS: LABETALOL 200 MG TAB PO SCH (09:08)
[2018-03-26] MEDS: hydrALAZINE HCL 25 MG TAB PO SCH (09:08)
[2018-03-26] MEDS: INSULIN DETEMIR (LEVEMIR) 100 UNIT/ML SYR SQ SCH (09:09)
[2018-03-26] MEDS: LISINOPRIL 20 MG TAB PO SCH (09:09)
[2018-03-26] MEDS: ATORVASTATIN 80 MG TAB PO SCH (09:09)
--- NOTE | 2018-03-26 11:06 | P.PN ---
Subjective Progress Note Date: 03/26/18 This is a 62-year-old female admitted to the hospital through the emergency room, has history of hypertension hyperlipidemia, PAD, underwent a stress test as an outpatient which was reported to be normal for this reason patient was taken to the cardiac catheterization lab by Dr. Cruz and underwent angioplasty and stenting of the LAD. She was seen and examined this morning, denies any chest pain or difficulty in breathing. EKG showed normal sinus rhythm with no changes from post-PCI. Blood pressure 132/70 with a heart rate in the 70s, 95% on room air. Sodium 140, potassium 4.5, BUN 19 and creatinine 1.0. White blood cell count 5.5, hemoglobin 12.3, platelet count 184. Objective - Vital Signs Vital signs: Vital Signs Temp 98.1 F 03/26/18 09:12 Pulse 76 03/26/18 09:12 Resp 18 03/26/18 09:12 BP 133/75 03/26/18 09:12 Pulse Ox 95 03/26/18 09:12 Intake & Output 03/25/18 03/26/18 03/26/18 18:59 06:59 18:59 Intake Total 010.347 6048 140 Balance 322.253 4695 140 Weight 74.6 kg 91.5 kg Intake: IV 126 Intake, IV Titration 118.211 500 Amount Heparin Sod,Pork in 0.45% 118.211 NaCl 25,000 unit In 0.45 % NaCl 1 250ml.bag @ 12 UNITS/KG/HR 9.14 mls/hr IV .Q24H [facility] Rx#: [id number] Sodium Chloride 0.9% 1, 500 000 ml @ 100 mls/hr IV . Q10H [facility] Rx#:[id number] Oral 1460 140 Other: # Voids 2 - Exam PHYSICAL EXAMINATION: GENERAL: 62-year-old female in no acute distress at the time of my examination HEENT: Head is atraumatic, normocephalic. Pupils equal, round. Sclera anicteric. Conjunctiva are clear. Mucous membranes of the mouth are moist. Neck is supple. There is no elevated jugular venous pressure.No carotid bruit is heard. HEART EXAMINATION: Heart S1, S2 normal. No murmur or gallop heard. CHEST EXAMINATION: Lungs are clear to auscultation and precussion. No chest wall tenderness is noted on palpation or with deep breathing. ABDOMEN: Soft, nontender. Bowel sounds are heard. No organomegaly noted. EXTREMITIES: 2+ peripheral pulses with no evidence of peripheral edema and no calf tenderness noted. Right radial site clean and dry, good distal pulse. NEUROLOGIC patient is awake, alert and oriented X3. . - Labs CBC & Chem 7: 03/26/18 05:41 03/26/18 05:26 Labs: Abnormal Lab Results - Last 24 Hours (Table) 03/25/18 03/25/18 03/25/18 Range/Units 05:51 11:19 17:07 BUN (7-17) mg/dL Creatinine (0.52-1.04) mg/dL Glucose (74-99) mg/dL POC Glucose (mg/dL) 161 H 153 H (75-99) mg/dL Hemoglobin A1c 7.4 H (4.0-6.0) % 03/25/18 03/26/18 03/26/18 Range/Units 20:13 05:26 05:57 BUN 19 H (7-17) mg/dL Creatinine 1.06 H (0.52-1.04) mg/dL Glucose 144 H (74-99) mg/dL POC Glucose (mg/dL) 182 H 158 H (75-99) mg/dL Hemoglobin A1c (4.0-6.0) % Assessment and Plan Plan: Assessment and plan #1 status post angioplasty with stent placement of the LAD #2 ischemic cardiomyopathy #3 hypertension #4 diabetes #5 hyperlipidemia Plan From cardiology's perspective, patient may be able to be discharged home today. We'll make her a follow-up appointment to see Dr. Cruz in the office one week post discharge. She will be discharged home on aspirin 81 mg daily, Lipitor 80 mg daily, hydralazine, labetalol 200 mg by mouth twice a day, lisinopril 40 mg daily, Effient 10 mg daily, and sublingual nitroglycerin as needed for chest pain. DNP note has been reviewed, I agree with a documented findings and plan of care. Patient was seen and examined.
[2018-03-26 11:09] LABS: Glucose,Whole Blood 138 mg/dL (75-99)
[2018-03-26] MEDS ORDERED: PRASUGREL 10 MG TAB PO SCH (12:00)
[2018-03-26 12:30] VITALS: BP 122/75; PULSE 71; TEMP 98.2
--- NOTE | 2018-03-26 12:30 | P.DS ---
Providers Date of admission: 03/24/18 14:33 Attending physician: Celeste Drake Consults: 03/24/18 15:31 Consult Physician Urgent Consulting Provider: Jim Moe Consult Reason/Comments: abnormal EKG, possible infarct Do you want consulting provider notified?: Yes 03/25/18 13:14 Consult Physician Routine Consulting Provider: [facility] Consult Reason/Comments: Post Interventional patient Do you want consulting provider notified?: Already Contacted Primary care physician: [facility] Course: This is 62 years old female who presented to the hospital with chest pain patient had abnormal stress test and was evaluated by cardiology who recommended cardiac catheterization which turned to be positive for 80% occlusion and LAD territory patient received stent and was started on Effient along with aspirin counseled regarding medication adherence and close follow-up with her primary care physician and consultant teacher on scheduled appointment. Patient was up ambulating in the ivy tolerating diet and felt stable from the medical standpoint and discharged by cardiology to follow-up with the office unscheduled appointment. Patient was discharged in stable condition Patient Condition at Discharge: Fair Plan - Discharge Summary Discharge Rx Participant: No New Discharge Prescriptions: New Atorvastatin [Lipitor] 80 mg PO DAILY #30 tab hydrALAZINE HCL [Apresoline] 25 mg PO BID #60 tab Nitroglycerin Sl Tabs [Nitrostat] 0.4 mg SUBLINGUAL Q5M PRN #25 tab PRN Reason: Chest Pain Prasugrel [Effient] 10 mg PO DAILY #30 tab Continue Lisinopril 40 mg PO DAILY Labetalol HCl [Trandate] 200 mg PO BID Aspirin 81 mg PO DAILY metFORMIN HCL [Glucophage] 1,000 mg PO BID-W/MEALS #60 tab No Action Omeprazole [PriLOSEC] 20 mg PO AC-BID #60 cap Hydrochlorothiazide [Hydrodiuril] 25 mg PO DAILY #0 Insulin Glargine,Hum.rec.anlog [Lantus Solostar] 30 unit SQ BID Discharge Medication List Labetalol HCl [Trandate] 200 mg PO BID 09/02/14 [History] Lisinopril 40 mg PO DAILY 09/02/14 [History] Omeprazole [PriLOSEC] 20 mg PO AC-BID #60 cap 09/03/14 [Rx] Aspirin 81 mg PO DAILY 10/03/14 [History] Hydrochlorothiazide [Hydrodiuril] 25 mg PO DAILY #0 10/22/14 [Rx] Insulin Glargine,Hum.rec.anlog [Lantus Solostar] 30 unit SQ BID 03/24/18 [ History] Atorvastatin [Lipitor] 80 mg PO DAILY #30 tab 03/26/18 [Rx] Nitroglycerin Sl Tabs [Nitrostat] 0.4 mg SUBLINGUAL Q5M PRN #25 tab 03/26/18 [Rx ] Prasugrel [Effient] 10 mg PO DAILY #30 tab 03/26/18 [Rx] hydrALAZINE HCL [Apresoline] 25 mg PO BID #60 tab 03/26/18 [Rx] metFORMIN HCL [Glucophage] 1,000 mg PO BID-W/MEALS #60 tab 03/26/18 [Rx] Follow up Appointment(s)/Referral(s): Rehan Cruz MD [STAFF PHYSICIAN] - 04/07/18 11:00 am Doroteo Varela DO [Primary Care Provider] - 1-2 days
== END 2018-03-26 14:01 | disposition home or self-care (01) | DRG 247 ==
LOC: EC 11:14 → 3SCARD 14:33
PROVIDERS: ADMIT Family Medicine; ATTEND Family Medicine
PROC: B2111ZZ Fluoroscopy of Multiple Coronary Arteries using Low Osmolar Contrast (ICD-10-PCS; 2018-03-25)
PROC: B2151ZZ Fluoroscopy of Left Heart using Low Osmolar Contrast (ICD-10-PCS; 2018-03-25)
PROC: 027034Z Dilation of Coronary Artery, One Artery with Drug-eluting Intraluminal Device, Percutaneous Approach (ICD-10-PCS; principal; 2018-03-25 11:30)
PROC: 4A023N7 Measurement of Cardiac Sampling and Pressure, Left Heart, Percutaneous Approach (ICD-10-PCS; 2018-03-25 11:30)
DX: I25.10 Atherosclerotic heart disease of native coronary artery without angina pectoris (principal); E11.65 Type 2 diabetes mellitus with hyperglycemia; E78.5 Hyperlipidemia, unspecified; E83.42 Hypomagnesemia; H91.90 Unspecified hearing loss, unspecified ear; I11.9 Hypertensive heart disease without heart failure; I25.5 Ischemic cardiomyopathy; K21.9 Gastro-esophageal reflux disease without esophagitis; M19.90 Unspecified osteoarthritis, unspecified site; R74.0 Nonspecific elevation of levels of transaminase and lactic acid dehydrogenase [LDH]; I34.0 Nonrheumatic mitral (valve) insufficiency; Z79.82 Long term (current) use of aspirin; Z79.4 Long term (current) use of insulin; Z79.899 Other long term (current) drug therapy; Z86.73 Personal history of transient ischemic attack (TIA), and cerebral infarction without residual deficits; Z87.891 Personal history of nicotine dependence; Z90.49 Acquired absence of other specified parts of digestive tract; Z90.710 Acquired absence of both cervix and uterus; Z96.652 Presence of left artificial knee joint; Z82.49 Family history of ischemic heart disease and other diseases of the circulatory system; Z83.3 Family history of diabetes mellitus
CPT/HCPCS: 36415; 70553; 71046; 80048; 80053; 80061; 82550; 82553; 82565; 83036; 83735; 84484; 85025; 85347; 85610; 85730; 93005; 93458; 96365; 96366; 96368; 96375; 96376; 99285; C1874

== ENCOUNTER → 2018-03-24 | Outpatient (CLI) | payer MEDICARE, OTHER ==
--- NOTE | 2018-03-24 11:02 | NM ---
EXAMINATION TYPE: NM stress lexiscan cardiolite DATE OF EXAM: 03/24/2018 COMPARISON: NONE HISTORY: Chronic ischemic heart disease, hypertension, diabetes, prior CVA, hyperlipidemia, and famil y history of heart disease. TECHNIQUE: After the intravenous administration of 9.73 mCi Tc 99m Sestamibi - Cardiolite resting SP ECT images acquired 55 minutes post injection. The patient received 0.4mg Lexiscan, 25.4 mCi Tc 99m Sestamibi - Stress images obtained [address] injection FINDINGS: Review of stress and rest SPECT images demonstrates a focal fixed defect of the mid anterior and sept al fontaine, mild in degree with moderate to severe tony-infarct ischemia occupying approximately 6 card iac segments within the apical and mid segments of the anterior and septal fontaine in the distribution of the left anterior descending coronary artery. There is corresponding hypokinesis of these fontaine. Gated analysis shows normal wall motion with an estimated left ventricular ejection fraction of 30 %. TID is calculated within normal limits at 1.05. IMPRESSION: 1. Fixed mild infarct in the mid segments of the anterior and septal left ventricular fontaine in the di stribution of the left anterior descending coronary artery with moderate to severe approximately 6 se gment tony-infarct ischemia. 2. Abnormal left ventricular ejection fraction of 30%. A [place] level critical message alert has been initiated for Doroteo Varela DO via the [facility] Critical Results System on 03/24/2018 10:59 AM. This message alert has been sent to Doroteo mendoza DO via the preferences provided by the clinician for the receipt of Radiology Critical Findin gs. Message ID [id number].
--- NOTE | 2018-03-24 11:20 | EST ---
EXERCISE STRESS AGE: 62 SEX: F HT: 62" WT: 168 PROTOCOL: Lexiscan Cardiolite Stress Test HEART RATE REST: 87 BLOOD PRESSURE REST: 157/98 MAXIMUM HEART RATE ACHIEVED: 105 MAXIMUM BLOOD PRESSURE: 187/99 INDICATIONS: Ischemic heart disease. CLINICAL INFORMATION: Baseline EKG shows sinus rhythm, poor R-wave progression. Nonspecific ST-T wave changes. Patient was given intravenous Lexiscan as per protocol. Did not have chest pain. There was [address]-segment depression in the inferolateral leads. CONCLUSION: 1. Abnormal stress test by EKG criteria. 2. Cardiolite portion of the stress test will be reported separately. MMODL / IJN: [id number] /
--- NOTE | 2018-03-24 11:21 | ECHOF ---
Referral Reason:I25.9 Chronic Ischemic Heart Disease, unspec.... MEASUREMENTS -------- HEIGHT: 157.5 cm WEIGHT: 76.2 kg BP: IVSd: 1.2 cm (0.6 - 1.1) LVIDd: 3.8 cm (3.9 - 5.3) LVPWd: 1.2 cm (0.6 - 1.1) IVSs: 1.4 cm LVIDs: 3.2 cm LVPWs: 1.4 cm LAESV Index (A-L): 28.90 ml/m Ao Diam: 2.9 cm (2.0 - 3.7) AV Cusp: 1.6 cm (1.5 - 2.6) LA Diam: 3.3 cm (2.7 - 3.8) EPSS: 1.1 cm MV E Burton: 0.58 m/s MV DecT: 405 ms MV A Burton: 1.25 m/s MV E/A Ratio: 0.46 RAP: 5.00 mmHg RVSP: 30.11 mmHg MV EF SLOPE: 45.80 mm/s (70 - 150) MV EXCURSION: 1.33 cm (> 18.000) FINDINGS -------- Sinus rhythm. This was a technically adequate study. The left ventricular size is normal. There is mild concentric left ventricular hypertrophy. There is moderate global hypokinesis of LV . Overall left ventricular systolic function is moderately im paired with, an EF between 35 - 40 %. Bill[place] is hypokinetic The right ventricle is normal in size and function. LA is midly dilated 29-33ml/m2. The right atrium is normal in size. Aortic valve is trileaflet and is mildly thickened. Trace amount of aortic regurgitation. There is no evidence of aortic stenosis. Mild mitral annular calcification present. There is trace to mild mitral regurgitation. Trace tricuspid regurgitation present. Right ventricular systolic pressure is normal at < 35 mmHg. There is no evidence of pulmonary hypertension. The pulmonic valve was not well visualized. The aortic root size is normal. Normal inferior vena cava with normal inspiratory collapse consistent with estimated right atrial pre ssure of 5 mmHg. There is no pericardial effusion. CONCLUSIONS -------- 1. Sinus rhythm. 2. This was a technically adequate study. 3. The left ventricular size is normal. 4. There is mild concentric left ventricular hypertrophy. 5. There is moderate global hypokinesis of LV . 6. Overall left ventricular systolic function is moderately impaired with, an EF between 35 - 40 %. 7. LA is midly dilated 29-33ml/m2. 8. Aortic valve is trileaflet and is mildly thickened. 9. Trace amount of aortic regurgitation. 10. Mild mitral annular calcification present. 11. There is trace to mild mitral regurgitation. 12. Trace tricuspid regurgitation present. 13. Right ventricular systolic pressure is normal at < 35 mmHg. 14. There is no evidence of pulmonary hypertension. 15. The pulmonic valve was not well visualized. 16. The aortic root size is normal. 17. There is no pericardial effusion. RD MECHANICAL ENGINEER: Daryl Yang RDCS
== END | disposition home or self-care (01) ==
LOC: RADNMMAIN 07:58
PROVIDERS: ATTEND Family Medicine
DX: I34.0 Nonrheumatic mitral (valve) insufficiency (principal); I11.9 Hypertensive heart disease without heart failure; I35.8 Other nonrheumatic aortic valve disorders; E11.9 Type 2 diabetes mellitus without complications; R94.31 Abnormal electrocardiogram [ECG] [EKG]; I25.9 Chronic ischemic heart disease, unspecified; I21.29 ST elevation (STEMI) myocardial infarction involving other sites; I21.02 ST elevation (STEMI) myocardial infarction involving left anterior descending coronary artery
CPT/HCPCS: 93017; 93306; 78452; A9500

== ENCOUNTER → 2018-04-13 | Outpatient (CLI) | payer MEDICARE, OTHER ==
[2018-04-14 06:09] LABS: Albumin 4.1 g/dL (3.80-4.90); Albumin/Globulin Ratio 2.16 (1.60-3.17); Anion Gap 10.9 mmol/L (4.00-12.00); Calcium 9.6 mg/dL (8.7-10.3); Carbon Dioxide 29.1 mmol/L (21.6-31.8); Globulin 1.9 g/dL (1.6-3.3); LDL Cholesterol,Calculated 34.8 mg/dL (0.0-131.0); Potassium 4.4 mmol/L (3.5-5.5); Total Bilirubin 0.4 mg/dL (0.2-1.2); VLDL Calculation 20.2 mg/dL (5.00-40.00)
== END | disposition home or self-care (01) ==
LOC: LABWHC1 07:54
PROVIDERS: ATTEND Internal Medicine Interventional Cardiology
DX: E78.2 Mixed hyperlipidemia (principal)
CPT/HCPCS: 36415; 80053; 80061

== ENCOUNTER → 2019-09-04 | Outpatient (CLI) | payer MEDICARE, OTHER ==
--- NOTE | 2019-09-04 13:47 | US ---
EXAMINATION TYPE: US thyroid st tissue head/neck DATE OF EXAM: 09/04/2019 COMPARISON: NONE CLINICAL HISTORY: R22.1 NECK MASS,R22.0 SWELLING. GLAND SIZE: Right Lobe: 3.7 X 1.9 X 1.6 cm Overall Parenchyma: homogenous Left Lobe: 3.7 X 1.4 X 1.1 cm Overall Parenchyma: homogeneous Isthmus Thickness: 0.3 cm NODULES RIGHT: # of nodules measured on right: 1 1. 1.1 X 0.8 x 0.8 cm isoechoic solid nodule at the mid pole with poorly defined margins; . This n odule is wider than tall and shows intranodular vascularity. This appears exophytic. This could be a parathyroid posterior to the inferior right lobe thyroid. Prior size: No prior LEFT: # of nodules measured on left: 0 ISTHMUS: # of nodules measured in the isthmus: 0 Bilateral neck scanned, no evidence of lymphadenopathy. IMPRESSION: Parathyroid versus exophytic slightly hypoechoic nodule inferior right lobe thyroid.
== END | disposition home or self-care (01) ==
LOC: RADUSWWP 12:41
PROVIDERS: ATTEND Family Medicine
DX: R22.0 Localized swelling, mass and lump, head (principal); R22.1 Localized swelling, mass and lump, neck
CPT/HCPCS: 76536

== ENCOUNTER 2021-06-12 09:51 | Day surgery (SDC) | payer MEDICARE, OTHER ==
[2021-06-10 15:56] VITALS: BMI 28.7
[~2021-06-12 09:51] MED LIST: ALPRAZolam 0.25 MG TAB PO PRN; ALPRAZolam 0.5 MG TAB PO PRN; ASPIRIN 325 MG TAB PO STA; NITROGLYCERIN SL TABS 0.4 MG TAB SUBLINGUAL PRN; SODIUM CHLORIDE 0.9% 1,000 ML in EMPTY BAG 1 BAG IV SCH
[2021-06-12 10:26] LABS: Glucose,Whole Blood 176 mg/dL (75-99)
[2021-06-12 10:32] LABS: Basophils % (A) 1 %; Eosinophils # (A) 0.3 k/uL (0-0.7); Eosinophils % (A) 4 %; HCT 39.1 % (34.0-46.0); HGB 12.9 gm/dL (11.4-16.0); Lymphocytes # (A) 1.6 k/uL (1.0-4.8); Lymphocytes % (A) 24 %; MCH 29.6 pg (25.0-35.0); MCV 89.7 fL (80.0-100.0); Mean Platelet Volume 8.6; Monocytes # (A) 0.3 k/uL (0-1.0); Monocytes % (A) 4 %; Neutrophils # (A) 4.6 k/uL (1.3-7.7); Neutrophils % (A) 67 %; Platelet Count 246 k/uL (150-450); RBC 4.36 m/uL (3.80-5.40); RDW 14.9 % (11.5-15.5); WBC 6.9 k/uL (3.8-10.6)
[2021-06-12 10:37] VITALS: RESP 16; TEMP 98
[2021-06-12 10:42] LABS: Calcium 9.9 mg/dL (8.4-10.2); Potassium 3.9 mmol/L (3.5-5.1)
[2021-06-12] MEDS ORDERED: fentaNYL (PF) 50 MCG/ML 2 ML AMP IV ONE (12:43)
[2021-06-12] MEDS ORDERED: LIDOCAINE 1% INJ 10MG/ML (5 ML VIAL-PF) SQ ONE (12:48)
[2021-06-12] MEDS ORDERED: VERAPAMIL SYRINGE (5 MG/10 ML) INTRAARTER ONE (12:50)
[2021-06-12] MEDS ORDERED: HEPARIN SODIUM 1,000 UN/ML (10ML VL) IV ONE (12:57)
[2021-06-12] MEDS ORDERED: MIDAZOLAM 2 MG/2 ML VIAL IV ONE (13:02)
[2021-06-12] MEDS ORDERED: IOPAMIDOL-370 125ML BTL INJ ONE (13:02)
[2021-06-12] MEDS ORDERED: RX INFO: IV CONTRAST WAS GIVEN 1 EACH MISC MISCELLANE PRN (13:22)
--- NOTE | 2021-06-12 13:28 | P.CARDCATH ---
Date of Procedure: 06/12/21 Description of Procedure: Cardiac Catheterization: The patient is a 65-year-old female with a known history of hypertension, hyperlipidemia, diabetes mellitus and prior stenting to the LAD who has not been very active physically recently underwent an MPI that showed anterolateral ischemia. Recommendations were made regarding cardiac catheterization, the risks and the complications were discussed with the patient who is in full understanding and agreement. Procedure Description: Patient was brought to pathology laboratory aide in fasting semi-sedated state after receiving Fentanyl and Benadryl achieiving moderate conscious sedated state. Using Xylocaine Anesthesia and Seldinger technique, a 6-Tamazight sheath was introduced in the right radial artery . Subsequently, selective coronary angiography performed using a 5-Tamazight 3.5 bend Gary catheter. Multiple views of the coronary artery including hemiaxial views were obtained. Following that, catheter and sheath were removed. Hemostasis was obtained with deployment of TR band . There was no immediate complication. Patient was returned to room in stable condition. Of note, the patient received a total of 4000 units of intravenous heparin as well as intra- arterial verapamil. There was no immediate complications. Findings: Left main: This is a short sized vessel, bifurcating into LAD and left circumflex, left main has no high-grade stenosis. LAD: This is a large size vessel, giving rise to a moderately sized diagonal branch, the stented segment in the proximal LAD is patent with minimal in-stent restenosis of 10% the mid vessel has no high-grade stenosis Left circumflex: This is a large dominant vessel, bifurcating distally into PDA and PLV, giving rise to a moderately sized obtuse marginal branch in the mid segment. 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 Patent stent in the LAD 2. Moderate disease in the left circumflex with no progression 3. Significant disease in a small nondominant right coronary artery 4. Left dominance Recommendations: I have recommended to continue medical therapy with the aggressive coronary risks modification that has been initiated. The findings were discussed with the patient who was in understanding and agreement Duration of sedation is 20 minutes.
[2021-06-12] MEDS ORDERED: SODIUM CHLORIDE 0.9% 1,000 ML IV SCH (13:30)
[2021-06-12 16:33] VITALS: BP 148/70; PULSE 72
[2021-06-12] MEDS ORDERED: NON FORMULARY DRUG (Metoprolol Tartrate [Lopressor] 100 MG Tablet) PO SCH (21:00)
[2021-06-13] MEDS ORDERED: ATORVASTATIN 40 MG TAB PO SCH (09:00)
[2021-06-13] MEDS ORDERED: ASPIRIN 81 MG PO SCH (09:00)
[2021-06-13] MEDS ORDERED: NON FORMULARY DRUG (Lisinopril [Lisinopril] 40 MG Tablet) PO SCH (09:00)
== END 2021-06-12 16:55 | disposition home or self-care (01) ==
LOC: CATHCVL 09:51
PROVIDERS: ATTEND Internal Medicine Interventional Cardiology
DX: I25.10 Atherosclerotic heart disease of native coronary artery without angina pectoris (principal); I10 Essential (primary) hypertension; E11.9 Type 2 diabetes mellitus without complications; E78.5 Hyperlipidemia, unspecified; Z20.822 Contact with and (suspected) exposure to COVID-19
CPT/HCPCS: 93458; 80048; 85025; 87635; C1894; C1769; J2250; J2001; J3010; J1644; Q9967